=== PATIENT | male | born 1980 | race Caucasian/White ===

== ENCOUNTER 2016-07-08 10:38 | Inpatient (IN) | payer BC ==
[2016-06-27 17:37] LABS: BASOPHILS 0.3 %; BASOPHILS ABSOLUTE 0.02 10/3/uL (0.0-0.16); EOSINOPHILS 0.9 %; EOSINOPHILS ABSOLUTE 0.06 10/3/uL (0.0-0.53); HEMATOCRIT 42.3 % (40.0-51.0); IMMATURE GRANULOCYTES 0.2 %; IMMATURE GRANULOCYTES ABSOLUTE 0.01 10/3/uL (0.0-0.11); LYMPHOCYTES 13.7 %; LYMPHOCYTES ABSOLUTE 0.89 10/3/uL (0.67-4.30); MEAN PLATELET VOLUME 9.8 fL (9.2-13.0); MONOCYTES 8.6 %; MONOCYTES ABSOLUTE 0.56 10/3/uL (0.21-1.20); NEUTROPHILS 76.3 %; NEUTROPHILS ABSOLUTE 4.95 10/3/uL (2.02-8.40); PLATELET COUNT 346 10/3/uL (150-400); RBC DISTRIBUTION WIDTH 17.6 % (12.0-16.0); RED CELL COUNT 4.91 10/6/uL (4.7-6.1); WHITE BLOOD CELLS 6.5 10/3/uL (4.5-10.5)
[2016-06-27 17:40] LABS: HEMOGLOBIN 14.6 g/dL (13.6-17.8); MANUAL DIFF NO %; MEAN CORPUS HGB CONC 34.5 g/dL (32.0-36.0); MEAN CORPUSCULAR HEMOGLOB 29.7 pg (26.0-34.0); MEAN CORPUSCULAR VOLUME 86.2 fL (80-100)
[2016-06-27 17:48] LABS: BUN (BLOOD UREA NITROGEN) 10 MG/DL (6-23); CALCIUM, SERUM 9.9 MG/DL (8.5-10.4); CHLORIDE, SERUM 105 MMOL/L (96-112); CO2 (CARBON DIOXIDE) 26 MMOL/L (24-34); CREATININE 0.78 MG/DL (0.70-1.30); GFR AFRICAN AMERICAN 133 ML/MIN (>=60); GFR NON AFRICAN AMERICAN 115 ML/MIN (>=60); GLUCOSE, SERUM 86 MG/DL (60-99); POTASSIUM, SERUM 4.3 MMOL/L (3.5-5.3); SODIUM, SERUM 141 MMOL/L (135-148)
--- NOTE | ~2016-07-08 | DS ---
Discharge Summary [facility] [address] [place]. [address] NAME: PHILL SOLIS : 76 STATUS : DIS IN PAT#: [id number] AGE: 36 ADM/REG DATE : 07/08/16 MR#: [id number] REPORT SERV DATE: 07/23/16 DICTATED BY: CARLTON DAVE DATE: 07/22/16 REPORT STATUS : Draft TRANSCRIBED BY: MODL DATE: 07/22/16 Data Collection from hospitalization DISCHARGE DIAGNOSIS(ES): 1. Rectal cancer. 2. Obesity. 3. Likely obstructive sleep apnea. CONSULTATIONS: None. PROCEDURES PERFORMED: Robotic minimally invasive proctectomy with colonic J-pouch anal anastomosis and diverting ileostomy, 07/08/2016. PATHOLOGY: Rectum and sigmoid colon total mesorectal excision status post neoadjuvant therapy with 1.75 mm residual focus of carcinoma. MEDICATIONS: Imodium 2 mg twice daily and Percocet 5/325 one every 4 hours as needed. CONDITION AT DISCHARGE: Upon discharge, he did appear to be doing well and had no complaints. DISPOSITION: He was discharged home to continue a regular diet with activity as discussed. He was to follow up with me in the office on 07/26/2016. HOSPITAL COURSE: This 36-year-old male had presented with advanced rectal cancer and underwent neoadjuvant chemoradiation, was in need of a resection, robotic minimally invasive proctectomy with colonic J pouch and anal anastomosis and diverting ileostomy had been offered to the patient as well as open operation. The risk including but not limited to, bleeding, infection, heart and lung complications, DVT, poor bowel function, genitourinary dysfunction with staged operation, recuperation, damage to organs among others were discussed with the patient. He did express understanding and was agreeable to proceed. He was therefore admitted for surgery and further treatment. Upon admission to the hospital, he had been taken to the operating room where he did undergo the above procedure. He tolerated this well and was transferred to the recovery room. On postop day #1, he was afebrile and his vital signs were stable. He did appear to be doing well postoperatively. On postop day #2, he did remain in stable condition and had no new complaints noted. His abdomen was soft and nontender. On postop day #3, his IV was discontinued, and he did remain in stable condition. His diet was being slowly advanced. On postop day #4, he was noted to have some nausea. His ostomy was functioning properly, and his pain was under good control. IV fluids were restarted. He was to have an NG tube inserted if the emesis and nausea persisted. He did undergo some lab work. On postop day #5, he had no nausea or vomiting noted. He was afebrile, and his vital signs were stable. We were again advancing his diet slowly. On 07/14/2016, he was afebrile, and his vital signs had remained stable. His WBCs were at 6.6. We were awaiting a better oral intake. On 07/15/2016, he had no complaints, and his oral intake had improved as he appeared to be doing well. He was then discharged with the above instructions. Information collected by: Yaneth Juarez Discharge Summary [address] [address] NAME: PHILL SOLIS : 76 STATUS : DIS IN PAT#: [id number] AGE: 36 ADM/REG DATE : 07/08/16 MR#: [id number] REPORT SERV DATE: 07/23/16 DICTATED BY: CARLTON DAVE DATE: 07/22/16 REPORT STATUS : Draft TRANSCRIBED BY: RANULFO DATE: 07/22/16 I submit the above information as my discharge summary. TEODORO/RANULFO Aparna Dave M.D. / [id number] CC: Shashank Quiñones M.D.
--- NOTE | ~2016-07-08 | OP ---
Record Of Operation [facility] [address] [place]. [address] NAME: PHILL SOLIS : 76 STATUS : ADM IN PAT#: [id number] AGE: 36 ADM/REG DATE : 07/08/16 MR#: [id number] REPORT SERV DATE: 07/10/16 DICTATED BY: CARLTON DAVE DATE: 07/09/16 REPORT STATUS : Draft TRANSCRIBED BY: MODL DATE: 07/09/16 DATE OF PROCEDURE: 07/08/2016 PREOPERATIVE DIAGNOSIS: Rectal carcinoma at 10 cm anterior. POSTOPERATIVE DIAGNOSIS: Rectal carcinoma at 10 cm anterior. PROCEDURE: Robotic minimally invasive proctectomy with colonic J-pouch anal anastomosis and diverting ileostomy. SURGEON: Aparna Dave M.D. RESIDENT: Amanda. ANESTHESIA: General. ESTIMATED BLOOD LOSS: Less than 100 mL. INDICATION: The patient had presented with advanced rectal cancer, underwent neoadjuvant chemoradiation, and was in need of resection. The above procedure was offered to him as well as open operation the risks including, but not limited to bleeding, infection, heart and lung complications, DVT, poor bowel function, genitourinary dysfunction with staged operation, recuperation, damage to organs among others were discussed with him, and he expressed understanding and agreed to proceed. DESCRIPTION OF PROCEDURE: The patient was taken to the operating room and placed in supine position. General anesthesia was induced. Lower extremities were placed in stirrups and well padded. The abdomen and perineum were prepped and draped. An incision was made in the right upper quadrant, and a 12 mm trocar was placed using Danette technique and the insufflation was obtained to 15 mmHg. Under direct vision, 8 mm trocar was placed in the right lateral and then superior to the umbilicus and up to the right and then two in the left lateral aspect and one in the epigastrium, and then one furthest on the right lower quadrant was a 12. The patient was then positioned in steep Trendelenburg and tilted to the right, and the Xi robot was docked with a small grasper in 1, a fenestrated bipolar in 2, [place] in 3, and Cautery scissors in 1. The inferior mesenteric vein was identified and ligated high and divided and then a medial to lateral dissection was made all the way up to the splenic flexure, and the pancreas was identified. I then identified the inferior mesenteric artery which was clipped twice down the stay side and once on the inner side after first identifying the ureter. The inferior mesenteric artery was divided, and then the sigmoid colon was dissected off the sigmoid recess using cautery, and again the ureter was identified and then the nerve sparing total mesorectal excision was performed down to the level of the pelvic floor, and the tumor was identified proximal to the anterior reflection. The echelon was then placed with 3 firings using thick load and then I continued to dissect the transverse colon so that adequate length and the omentum was taken off the distal half of the transverse colon to allow mobilization. The robot was then undocked and the site previously marked for the ileostomy was opened by removing a [place] Record Of Operation [place] [id number] [facility]. [address] NAME: PHILL SOLIS : 76 STATUS : ADM IN PAT#: [id number] AGE: 36 ADM/REG DATE : 07/08/16 MR#: [id number] REPORT SERV DATE: 07/10/16 DICTATED BY: CARLTON DAVE DATE: 07/09/16 REPORT STATUS : Draft TRANSCRIBED BY: MODYolanda DATE: 07/09/16 skin and traversing the anterior posterior rectus. This was extended laterally, somewhat to allow removal of the specimen which was brought out through a wound protector and then was divided after a clamp dividing and ligating the mesentery. There was excellent length and excellent blood supply. I created a colonic J-pouch using SARAHI stapler with a pouch length of approximately 5 cm, and a pursestring of 2-0 Prolene was placed and a 29 anvil was placed in that. The pouch with the anvil was placed back in the abdominal cavity. A pneumoperitoneum was reestablished, and the staple was placed up to the anus, and it was fired. There were two complete rings, and air insufflation revealed no leaks. The anastomosis was visualized just above the top of the anal canal at the level of the pelvic floor and was without bleeding or defect. There was no tension. The abdomen was checked for hemostasis which was complete and then the loop of ileum was brought out through the stoma site after reapproximating a portion of the fascia. To maintain proper tension, a bar was utilized, and the stoma was matured using 3-0 chromic in a Liane technique, having closed the other 12 mm trocar sites with 0 Vicryl and the skin with subcuticular Vicryl. Dressings were applied as well as the appliance. The patient tolerated the procedure well. The counts were correct. VIKY/NORMAL Aparna Dave M.D. / [id number] CC: Shashank Quiñones M.D.
[~2016-07-08 10:38] MED LIST: CALTRA600D PO; OTC IRON PO; VITAMIN D31000 UNIT PO; VITC500 PO
[2016-07-09 06:32] LABS: BASOPHILS 0 %; EOSINOPHILS 0 %; HEMATOCRIT 39.1 % (40.0-51.0); HEMOGLOBIN 13.5 g/dL (13.6-17.8); IMMATURE GRANULOCYTES 0.3 %; IMMATURE GRANULOCYTES ABSOLUTE 0.03 10/3/uL (0.0-0.11); LYMPHOCYTES 3.3 %; LYMPHOCYTES ABSOLUTE 0.35 10/3/uL (0.67-4.30); MEAN CORPUS HGB CONC 34.5 g/dL (32.0-36.0); MEAN CORPUSCULAR HEMOGLOB 29.4 pg (26.0-34.0); MEAN CORPUSCULAR VOLUME 85.2 fL (80-100); MEAN PLATELET VOLUME 9.8 fL (9.2-13.0); MONOCYTES 8.5 %; MONOCYTES ABSOLUTE 0.91 10/3/uL (0.21-1.20); NEUTROPHILS 87.9 %; NEUTROPHILS ABSOLUTE 9.36 10/3/uL (2.02-8.40); PLATELET COUNT 299 10/3/uL (150-400); RBC DISTRIBUTION WIDTH 16.1 % (12.0-16.0); RED CELL COUNT 4.59 10/6/uL (4.7-6.1)
[2016-07-09 06:40] LABS: BUN (BLOOD UREA NITROGEN) 7 MG/DL (6-23); CHLORIDE, SERUM 107 MMOL/L (96-112); CO2 (CARBON DIOXIDE) 24 MMOL/L (24-34); CREATININE 0.85 MG/DL (0.70-1.30); GFR AFRICAN AMERICAN 128 ML/MIN (>=60); GFR NON AFRICAN AMERICAN 111 ML/MIN (>=60); POTASSIUM, SERUM 4.2 MMOL/L (3.5-5.3); SODIUM, SERUM 140 MMOL/L (135-148)
[2016-07-09 06:42] LABS: MANUAL DIFF NO %; WHITE BLOOD CELLS 10.7 10/3/uL (4.5-10.5)
[2016-07-09 06:44] LABS: CALCIUM, SERUM 8.9 MG/DL (8.5-10.4); GLUCOSE, SERUM 157 MG/DL (60-99)
[2016-07-10 08:07] LABS: BASOPHILS 0.1 %; BASOPHILS ABSOLUTE 0.01 10/3/uL (0.0-0.16); EOSINOPHILS 0.3 %; EOSINOPHILS ABSOLUTE 0.03 10/3/uL (0.0-0.53); HEMATOCRIT 36.6 % (40.0-51.0); HEMOGLOBIN 12.4 g/dL (13.6-17.8); IMMATURE GRANULOCYTES 0.1 %; IMMATURE GRANULOCYTES ABSOLUTE 0.01 10/3/uL (0.0-0.11); LYMPHOCYTES 7.2 %; LYMPHOCYTES ABSOLUTE 0.64 10/3/uL (0.67-4.30); MEAN CORPUS HGB CONC 33.9 g/dL (32.0-36.0); MEAN CORPUSCULAR HEMOGLOB 29.4 pg (26.0-34.0); MEAN CORPUSCULAR VOLUME 86.7 fL (80-100); MEAN PLATELET VOLUME 9.6 fL (9.2-13.0); MONOCYTES 6.7 %; NEUTROPHILS 85.6 %; NEUTROPHILS ABSOLUTE 7.65 10/3/uL (2.02-8.40); PLATELET COUNT 281 10/3/uL (150-400); RBC DISTRIBUTION WIDTH 17.3 % (12.0-16.0); RED CELL COUNT 4.22 10/6/uL (4.7-6.1); WHITE BLOOD CELLS 8.9 10/3/uL (4.5-10.5)
[2016-07-10 08:14] LABS: MANUAL DIFF NO %
[2016-07-10 08:33] LABS: BUN (BLOOD UREA NITROGEN) 6 MG/DL (6-23); CALCIUM, SERUM 8.9 MG/DL (8.5-10.4); CHLORIDE, SERUM 106 MMOL/L (96-112); CREATININE 0.71 MG/DL (0.70-1.30); GFR AFRICAN AMERICAN 138 ML/MIN (>=60); GFR NON AFRICAN AMERICAN 119 ML/MIN (>=60); GLUCOSE, SERUM 139 MG/DL (60-99); SODIUM, SERUM 139 MMOL/L (135-148)
[2016-07-10 08:34] LABS: CO2 (CARBON DIOXIDE) 32 MMOL/L (24-34); POTASSIUM, SERUM 4.6 MMOL/L (3.5-5.3)
[2016-07-12 06:49] LABS: BASOPHILS 0.1 %; BASOPHILS ABSOLUTE 0.01 10/3/uL (0.0-0.16); EOSINOPHILS 0.7 %; EOSINOPHILS ABSOLUTE 0.06 10/3/uL (0.0-0.53); HEMATOCRIT 38.5 % (40.0-51.0); HEMOGLOBIN 13.3 g/dL (13.6-17.8); IMMATURE GRANULOCYTES 0.2 %; IMMATURE GRANULOCYTES ABSOLUTE 0.02 10/3/uL (0.0-0.11); LYMPHOCYTES 6.8 %; LYMPHOCYTES ABSOLUTE 0.56 10/3/uL (0.67-4.30); MEAN CORPUS HGB CONC 34.5 g/dL (32.0-36.0); MEAN CORPUSCULAR HEMOGLOB 29.8 pg (26.0-34.0); MEAN CORPUSCULAR VOLUME 86.3 fL (80-100); MONOCYTES ABSOLUTE 0.57 10/3/uL (0.21-1.20); NEUTROPHILS 85.2 %; NEUTROPHILS ABSOLUTE 6.96 10/3/uL (2.02-8.40); PLATELET COUNT 314 10/3/uL (150-400); RBC DISTRIBUTION WIDTH 17.3 % (12.0-16.0); RED CELL COUNT 4.46 10/6/uL (4.7-6.1); WHITE BLOOD CELLS 8.2 10/3/uL (4.5-10.5)
[2016-07-12 06:50] LABS: MANUAL DIFF NO %
[2016-07-12 06:55] LABS: BUN (BLOOD UREA NITROGEN) 9 MG/DL (6-23); CHLORIDE, SERUM 102 MMOL/L (96-112); CREATININE 0.58 MG/DL (0.70-1.30); GFR AFRICAN AMERICAN 150 ML/MIN (>=60); GFR NON AFRICAN AMERICAN 129 ML/MIN (>=60); SODIUM, SERUM 137 MMOL/L (135-148)
[2016-07-12 06:56] LABS: CO2 (CARBON DIOXIDE) 27 MMOL/L (24-34); GLUCOSE, SERUM 100 MG/DL (60-99)
[2016-07-12 08:53] LABS: BASOPHILS 0.1 %; BASOPHILS ABSOLUTE 0.01 10/3/uL (0.0-0.16); EOSINOPHILS 0.4 %; EOSINOPHILS ABSOLUTE 0.03 10/3/uL (0.0-0.53); HEMATOCRIT 41.4 % (40.0-51.0); HEMOGLOBIN 13.9 g/dL (13.6-17.8); IMMATURE GRANULOCYTES 0.2 %; IMMATURE GRANULOCYTES ABSOLUTE 0.02 10/3/uL (0.0-0.11); LYMPHOCYTES 6.4 %; LYMPHOCYTES ABSOLUTE 0.54 10/3/uL (0.67-4.30); MEAN CORPUS HGB CONC 33.6 g/dL (32.0-36.0); MEAN CORPUSCULAR HEMOGLOB 29.5 pg (26.0-34.0); MEAN CORPUSCULAR VOLUME 87.9 fL (80-100); MEAN PLATELET VOLUME 9.4 fL (9.2-13.0); MONOCYTES 6.4 %; MONOCYTES ABSOLUTE 0.54 10/3/uL (0.21-1.20); NEUTROPHILS 86.5 %; NEUTROPHILS ABSOLUTE 7.34 10/3/uL (2.02-8.40); PLATELET COUNT 360 10/3/uL (150-400); RBC DISTRIBUTION WIDTH 17.1 % (12.0-16.0); RED CELL COUNT 4.71 10/6/uL (4.7-6.1); WHITE BLOOD CELLS 8.5 10/3/uL (4.5-10.5)
[2016-07-12 08:55] LABS: MANUAL DIFF NO %
[2016-07-12 09:08] LABS: BUN (BLOOD UREA NITROGEN) 9 MG/DL (6-23); CALCIUM, SERUM 9.5 MG/DL (8.5-10.4); CHLORIDE, SERUM 101 MMOL/L (96-112); CO2 (CARBON DIOXIDE) 28 MMOL/L (24-34); CREATININE 0.69 MG/DL (0.70-1.30); GFR AFRICAN AMERICAN 140 ML/MIN (>=60); GFR NON AFRICAN AMERICAN 120 ML/MIN (>=60); GLUCOSE, SERUM 116 MG/DL (60-99); POTASSIUM, SERUM 4.2 MMOL/L (3.5-5.3); SODIUM, SERUM 136 MMOL/L (135-148)
[2016-07-13 06:43] LABS: BUN (BLOOD UREA NITROGEN) 10 MG/DL (6-23); CALCIUM, SERUM 8.7 MG/DL (8.5-10.4); CHLORIDE, SERUM 105 MMOL/L (96-112); CREATININE 0.61 MG/DL (0.70-1.30); GFR AFRICAN AMERICAN 147 ML/MIN (>=60); GFR NON AFRICAN AMERICAN 127 ML/MIN (>=60); GLUCOSE, SERUM 112 MG/DL (60-99); SODIUM, SERUM 139 MMOL/L (135-148)
[2016-07-13 06:49] LABS: CO2 (CARBON DIOXIDE) 23 MMOL/L (24-34); POTASSIUM, SERUM 4.8 MMOL/L (3.5-5.3)
[2016-07-13 07:33] LABS: BASOPHILS 0.3 %; BASOPHILS ABSOLUTE 0.02 10/3/uL (0.0-0.16); EOSINOPHILS 2.1 %; EOSINOPHILS ABSOLUTE 0.14 10/3/uL (0.0-0.53); HEMATOCRIT 39.4 % (40.0-51.0); IMMATURE GRANULOCYTES 0.5 %; IMMATURE GRANULOCYTES ABSOLUTE 0.03 10/3/uL (0.0-0.11); LYMPHOCYTES 6.7 %; LYMPHOCYTES ABSOLUTE 0.44 10/3/uL (0.67-4.30); MEAN CORPUSCULAR VOLUME 87.9 fL (80-100); MEAN PLATELET VOLUME 9.9 fL (9.2-13.0); MONOCYTES 9.9 %; MONOCYTES ABSOLUTE 0.65 10/3/uL (0.21-1.20); NEUTROPHILS 80.5 %; NEUTROPHILS ABSOLUTE 5.31 10/3/uL (2.02-8.40); PLATELET COUNT 279 10/3/uL (150-400); RBC DISTRIBUTION WIDTH 17.3 % (12.0-16.0); RED CELL COUNT 4.48 10/6/uL (4.7-6.1); WHITE BLOOD CELLS 6.6 10/3/uL (4.5-10.5)
[2016-07-13 07:34] LABS: MANUAL DIFF NO %
[2016-07-15 07:11] LABS: BASOPHILS 0 %; EOSINOPHILS 1.2 %; EOSINOPHILS ABSOLUTE 0.07 10/3/uL (0.0-0.53); HEMATOCRIT 39.1 % (40.0-51.0); IMMATURE GRANULOCYTES 0.5 %; IMMATURE GRANULOCYTES ABSOLUTE 0.03 10/3/uL (0.0-0.11); LYMPHOCYTES 7.6 %; LYMPHOCYTES ABSOLUTE 0.45 10/3/uL (0.67-4.30); MEAN CORPUS HGB CONC 33.2 g/dL (32.0-36.0); MEAN CORPUSCULAR HEMOGLOB 29.3 pg (26.0-34.0); MEAN CORPUSCULAR VOLUME 88.1 fL (80-100); MONOCYTES 8.1 %; MONOCYTES ABSOLUTE 0.48 10/3/uL (0.21-1.20); NEUTROPHILS 82.6 %; NEUTROPHILS ABSOLUTE 4.87 10/3/uL (2.02-8.40); PLATELET COUNT 304 10/3/uL (150-400); RED CELL COUNT 4.44 10/6/uL (4.7-6.1); WHITE BLOOD CELLS 5.9 10/3/uL (4.5-10.5)
[2016-07-15 07:15] LABS: MANUAL DIFF NO %
[2016-07-15 07:24] LABS: BUN (BLOOD UREA NITROGEN) 5 MG/DL (6-23); CALCIUM, SERUM 9.1 MG/DL (8.5-10.4); CHLORIDE, SERUM 103 MMOL/L (96-112); CO2 (CARBON DIOXIDE) 29 MMOL/L (24-34); GFR AFRICAN AMERICAN 148 ML/MIN (>=60); GFR NON AFRICAN AMERICAN 128 ML/MIN (>=60); GLUCOSE, SERUM 105 MG/DL (60-99); SODIUM, SERUM 139 MMOL/L (135-148)
[2016-07-15] MEDS ORDERED: IMOD PO (08:07)
[2016-07-15] MEDS ORDERED: PCET PO (08:08)
[2016-08-26] MEDS ORDERED: *DENIES (16:32)
[2016-09-22] MEDS ORDERED: PCET PO (12:13)
== END 2016-07-15 11:55 | disposition home health service (06) | DRG 331 ==
LOC: SDC/OF 10:38 → 5SO 22:40
PROVIDERS: Colon & Rectal Surgery
PROC: 3E0T3CZ (ICD-10-PCS; 2016-07-08)
PROC: 0DBP7ZZ Excision of Rectum, Via Natural or Artificial Opening (ICD-10-PCS; principal; 2016-07-08 12:00)
PROC: 0D1 Gastrointestinal System, Bypass (ICD-10-PCS; 2016-07-08 12:00)
DX: C20 Malignant neoplasm of rectum (principal); E66.9 Obesity, unspecified; Z68.35 Body mass index [BMI] 35.0-35.9, adult; G47.33 Obstructive sleep apnea (adult) (pediatric); Z92.21 Personal history of antineoplastic chemotherapy; Z92.3 Personal history of irradiation; Z80.3 Family history of malignant neoplasm of breast; Z83.71 Family history of colonic polyps
CPT/HCPCS: 80048; 85025; 88309; 88341; 88342; A9270-GY; J0330; J0690; J1170; J2250; J2370; J2405; J2550; J2710; J2795; J3010